=== PATIENT | female | born 1975 | race African-American/Black ===

== ENCOUNTER 2017-09-14 22:48 | Emergency (ER) | payer MEDICAID ==
[~2017-09-14] VITALS: Ht 160 cm; Wt 73.5 kg
[2017-09-14 23:00] VITALS: Ht 160 cm; Wt 73.5 kg
[2017-09-14 23:19] VITALS: BP 190/101
== END 2017-09-15 00:55 | disposition home or self-care (01) ==
LOC: ED 22:48
DX: R51 Headache (principal); I10 Essential (primary) hypertension; F17.210 Nicotine dependence, cigarettes, uncomplicated
CPT/HCPCS: 20552; 99406; J2001

== ENCOUNTER 2018-05-19 22:46 | Emergency (ER) | payer OTHER ==
[2018-05-19 22:51] VITALS: BP 153/94; Ht 160 cm
== END 2018-05-20 01:21 | disposition left against medical advice (07) ==
LOC: ED 22:46
DX: Z53.21 Procedure and treatment not carried out due to patient leaving prior to being seen by health care provider (principal)

== ENCOUNTER 2018-07-02 20:19 | Emergency (ER) | payer OTHER ==
[~2018-07-02] VITALS: Ht 160 cm; Wt 74.4 kg
[2018-07-02 20:24] VITALS: Ht 160 cm; Wt 74.4 kg
[2018-07-02 21:41] LABS: BASOPHIL % 0.8 % (0-2); PLATELET COUNT 254 x10^3mcL (130-400); RED CELL DISTRIBUTION WIDTH 12.1 % (11.5-14.5)
[2018-07-02 21:55] LABS: CALCIUM 8.6 mg/dL (8.5-10.1); CARBON DIOXIDE 26.7 mmol/L (21-32); CHLORIDE SERUM 106 mmol/L (98-107); CREATININE SERUM 0.8 mg/dL (0.6-1.0); GFR1 > 60 mL/min; GLUCOSE SERUM 107 mg/dL (74-106); POTASSIUM SERUM 3.5 mmol/L (3.5-5.1); SODIUM SERUM 140 mmol/L (136-145)
[2018-07-02 21:59] LABS: ALBUMIN 3.8 g/dL (3.4-5.0); ALKALINE PHOSPHATASE 61 U/L (46-116); ALT/SGPT 23 U/L (14-59); AST/SGOT 16 U/L (15-37); BILIRUBIN TOTAL 0.5 mg/dL (0.20-1.00); CHOLESTEROL 190 mg/dL (<200); HDL CHOLESTEROL 48 mg/dL (40-60); LIPASE 97 IU/L (73-393); TOTAL PROTEIN, SERUM 6.9 g/dL (6.4-8.2); TRIGLYCERIDES 176 mg/dL (<150)
[2018-07-02 22:22] LABS: T3 TOTAL 1.01 ng/mL
[2018-07-02 22:54] LABS: FREE T4 0.85 ng/dL (0.76-1.46); T4(THYROXINE) 5.9 ug/dL (4.7-13.3)
[2018-07-02 23:54] VITALS: BP 147/95
== END 2018-07-02 23:54 | disposition home or self-care (01) ==
LOC: ED 20:19
PROVIDERS: Specialist
DX: R51 Headache (principal); H53.8 Other visual disturbances; M54.2 Cervicalgia; M54.5 Low back pain; M54.6 Pain in thoracic spine; Z90.710 Acquired absence of both cervix and uterus; Z98.890 Other specified postprocedural states
CPT/HCPCS: 83880; 84439; J1885; J2405; J3010; J7030; Q0092

== ENCOUNTER 2019-04-15 01:31 | Emergency (ER) | payer OTHER ==
[~2019-04-15] VITALS: Ht 160 cm; Wt 74.0 kg
[2019-04-15 02:34] LABS: BASOPHIL % 0.4 % (0-2); PLATELET COUNT 253 x10^3mcL (130-400); RED CELL DISTRIBUTION WIDTH 12.1 % (11.5-14.5)
[2019-04-15 02:41] LABS: CALCIUM 8.5 mg/dL (8.5-10.1); CHLORIDE SERUM 105 mmol/L (98-107); CREATININE SERUM 0.7 mg/dL (0.6-1.0); GFR1 > 60 mL/min; GLUCOSE SERUM 108 mg/dL (74-106); POTASSIUM SERUM 3.4 mmol/L (3.5-5.1); SODIUM SERUM 141 mmol/L (136-145)
[2019-04-15 02:46] LABS: ALBUMIN 3.6 g/dL (3.4-5.0); ALKALINE PHOSPHATASE 68 U/L (46-116); ALT/SGPT 22 U/L (14-59); AST/SGOT 14 U/L (15-37); BILIRUBIN TOTAL 0.4 mg/dL (0.20-1.00); TOTAL PROTEIN, SERUM 6.9 g/dL (6.4-8.2)
[2019-04-15 03:34] VITALS: BP 119/71
== END 2019-04-15 03:34 | disposition home or self-care (01) ==
LOC: ED 01:31
PROVIDERS: Emergency Medicine
DX: R51 Headache (principal); Z90.710 Acquired absence of both cervix and uterus; Z98.890 Other specified postprocedural states
CPT/HCPCS: J2405; J3010; J7030

== ENCOUNTER 2019-10-16 08:27 | Emergency (ER) | payer OTHER ==
[~2019-10-16] VITALS: Ht 160 cm; Wt 77.6 kg
[2019-10-16 08:34] VITALS: Ht 160 cm; Wt 77.6 kg
[2019-10-16 09:21] VITALS: BP 129/96
[2019-10-16 09:36] LABS: UA SPECIFIC GRAVITY >=1.030 (1.005-1.035); microscopic required? YES; urine erythrocyte 2+ (NEGATIVE)
== END 2019-10-16 12:30 | disposition home or self-care (01) ==
LOC: ED 08:27
PROVIDERS: Specialist
DX: R19.7 Diarrhea, unspecified (principal); Z90.710 Acquired absence of both cervix and uterus
CPT/HCPCS: 82962; 87046; 87046-59; J1885